=== PATIENT | female | born 1975 | race Caucasian/White ===

== ENCOUNTER 2016-10-07 14:32 | Emergency (ER) | payer SELFPAY ==
[2016-10-07] MEDS ORDERED: ACETAMINOPHEN TAB 325 MG TAB PO STA (15:55)
[2016-10-07] MEDS ORDERED: SODIUM CHLORIDE 0.9% 1,000 ML IV ONE (15:55)
[2016-10-07 16:17] LABS: Basophils % (A) 0 %; CH 31.4; CHCM 34.5; Eosinophils # (A) 0.1 k/uL (0-0.7); Eosinophils % (A) 1 %; HCT 38.2 % (34.0-46.0); HDW 2.67; HGB 12.9 gm/dL (11.4-16.0); Luc # (Auto) 0.06; Luc % (Auto) 1; Lymphocytes # (A) 0.7 k/uL (1.0-4.8); Lymphocytes % (A) 7 %; MCH 30.9 pg (25.0-35.0); MCHC 33.8 g/dL (31.0-37.0); MCV 91.5 fL (80.0-100.0); Mean Platelet Volume 7.8; Monocytes # (A) 0.2 k/uL (0-1.0); Monocytes % (A) 2 %; Neutrophils # (A) 9.1 k/uL (1.3-7.7); Neutrophils % (A) 89 %; RBC 4.17 m/uL (3.80-5.40); RDW 12.2 % (11.5-15.5); WBC 10.3 k/uL (3.8-10.6)
[2016-10-07 16:28] LABS: Anion Gap 8 mmol/L; Blood Urea Nitrogen 16 mg/dL (7-17); Calcium 8.9 mg/dL (8.4-10.2); Carbon Dioxide 24 mmol/L (22-30); Chloride 105 mmol/L (98-107); Glucose 86 mg/dL (74-99); Non-African American GFR(MDRD) >60 (>60 ml/min/1.73 sqM); Potassium 4.1 mmol/L (3.5-5.1); Sodium 137 mmol/L (137-145)
--- NOTE | 2016-10-07 16:29 | XR ---
EXAMINATION TYPE: XR chest 2V DATE OF EXAM: 10/07/2016 4:24 PM COMPARISON: 03/26/2010 HISTORY: 40-year-old female with cough TECHNIQUE: PA and lateral views FINDINGS: The cardiomediastinal silhouette, aorta, and pulmonary vasculature are within normal limits. Lungs an d pleural spaces are clear. IMPRESSION: No acute cardiopulmonary process.
[2016-10-07 16:56] VITALS: RESP 14
--- NOTE | 2016-10-07 17:08 | ED ---
General Adult HPI - General Chief complaint: Shortness of Breath Stated complaint: SOB/Cogestion Time Seen by Provider: 10/07/16 15:19 Source: patient Mode of arrival: ambulatory Limitations: no limitations - History of Present Illness Initial comments: 40-year-old female presenting for evaluation of 2 weeks of cough and fever. She states during the first week she had a dry cough with fever that H did T-max of 10 1F. She also had some rhinorrhea and congestion but these symptoms resolved over the next 8-9 days with only Motrin and Tylenol interventions. She was asymptomatic for a few days but yesterday she states she started having worsening nonproductive cough and return of fevers and myalgias. She has not taken any medications for her symptoms including antibiotics. There are no alleviating or exacerbating factors. She has not seen her primary care physician concerning these symptoms as she states she does not have any insurance. She states that she has multiple sick contacts at the workplace. She is also a smoker. - Related Data Previous Rx's Medication Instructions Recorded Azithromycin [Zithromax Z-pack] 0 mg PO DIRECTED #6 tab 10/07/16 Allergies Allergy/AdvReac Type Severity Reaction Status Date / Time No Known Allergies Allergy Verified 10/07/16 15:35 Review of Systems ROS Statement: Those systems with pertinent positive or pertinent negative responses have been documented in the HPI. ROS Other: All systems not noted in ROS Statement are negative. Constitutional: Reports: fever, chills Eyes: Denies: eye pain, eye discharge, vision change ENT: Denies: ear pain, throat pain Respiratory: Reports: cough, dyspnea. Denies: wheezes, hemoptysis Cardiovascular: Denies: chest pain, palpitations, edema Endocrine: Reports: fatigue. Denies: polydipsia, polyuria Gastrointestinal: Denies: abdominal pain, nausea, vomiting Genitourinary: Denies: urgency, dysuria Musculoskeletal: Reports: myalgia. Denies: back pain Skin: Denies: rash, lesions Neurological: Denies: headache, weakness Past Medical History Past Medical History: No Reported History History of Any Multi-Drug Resistant Organisms: None Reported Additional Past Surgical History / Comment(s): tubal ligation. Past Psychological History: No Psychological Hx Reported Smoking Status: Current every day smoker Past Alcohol Use History: None Reported Past Drug Use History: None Reported General Exam Limitations: no limitations General appearance: alert, in no apparent distress Head exam: Present: atraumatic, normocephalic Eye exam: Present: normal appearance, EOMI. Absent: scleral icterus ENT exam: Present: normal exam, normal oropharynx, mucous membranes moist. Absent: mucous membranes dry Neck exam: Present: normal inspection. Absent: tenderness, meningismus Respiratory exam: Present: normal lung sounds bilaterally. Absent: respiratory distress, wheezes, rales, rhonchi Cardiovascular Exam: Present: normal rhythm, tachycardia. Absent: regular rate GI/Abdominal exam: Present: soft. Absent: distended, tenderness, guarding, rebound, rigid Rectal exam: Present: deferred Extremities exam: Present: normal inspection, full ROM Back exam: Present: normal inspection, full ROM. Absent: tenderness Neurological exam: Present: alert, oriented X3, normal gait Psychiatric exam: Present: normal affect, normal mood Skin exam: Present: warm, dry, intact Course Vital Signs 10/07/16 10/07/16 10/07/16 15:02 16:04 16:50 Temperature 102.2 F H 99.0 F Pulse Rate 113 H 99 94 Respiratory 20 15 14 Rate Blood Pressure 132/59 113/61 97/59 O2 Sat by Pulse 100 98 98 Oximetry 10/07/16 17:26 Temperature 98.9 F Pulse Rate 99 Respiratory 14 Rate Blood Pressure 94/51 O2 Sat by Pulse 96 Oximetry Medical Decision Making - Medical Decision Making 40-year-old female presented for evaluation of URI symptoms that started 2 weeks ago resolved after 8-9 days and then returned in the last 24-48 hours. Cough is nonproductive and on presentation she is febrile. Physical examination reveals a nondistressed female resting comfortably on the bed with clear lung sounds bilaterally. The rest of the physical exam is benign. We'll obtain an influenza swabs, labs, chest x-ray, and provide antipyretics. There are no indications for breathing treatments as her lungs are clear. Labs revealed no significant abnormalities and influenza was negative. Chest x- ray reveals no acute process. The patient was informed of these results and on reevaluation was feeling much better. She was advised to follow-up with her primary care physician but to return to this facility if her symptoms should worsen or persist. She acknowledged an understanding of this information and agreed with this plan of care. - Lab Data Result diagrams: 10/07/16 16:00 10/07/16 16:00 Lab Results 10/07/16 10/07/16 10/07/16 Range/Units 16:00 16:00 16:00 WBC 10.3 (3.8-10.6) k/uL RBC 4.17 (3.80-5.40) m/uL Hgb 12.9 (11.4-16.0) gm/dL Hct 38.2 (34.0-46.0) % MCV 91.5 (80.0-100.0) fL MCH 30.9 (25.0-35.0) pg MCHC 33.8 (31.0-37.0) g/dL RDW 12.2 (11.5-15.5) % Plt Count 342 (150-450) k/uL Neutrophils % 89 % Lymphocytes % 7 % Monocytes % 2 % Eosinophils % 1 % Basophils % 0 % Neutrophils # 9.1 H (1.3-7.7) k/uL Lymphocytes # 0.7 L (1.0-4.8) k/uL Monocytes # 0.2 (0-1.0) k/uL Eosinophils # 0.1 (0-0.7) k/uL Basophils # 0.0 (0-0.2) k/uL Sodium 137 (137-145) mmol/L Potassium 4.1 (3.5-5.1) mmol/L Chloride 105 (98-107) mmol/L Carbon Dioxide 24 (22-30) mmol/L Anion Gap 8 mmol/L BUN 16 (7-17) mg/dL Creatinine 0.60 (0.52-1.04) mg/dL Est GFR (MDRD) Af Amer >60 (>60 ml/min/1.73 sqM) Est GFR (MDRD) Non-Af >60 (>60 ml/min/1.73 sqM) Glucose 86 (74-99) mg/dL Calcium 8.9 (8.4-10.2) mg/dL Influenza Type A RNA Not Detected (Not Detectd) Influenza Type B (PCR) Not Detected (Not Detectd) Disposition Clinical Impression: URI (upper respiratory infection), Fever Disposition: HOME SELF-CARE Condition: Stable Instructions: Upper Respiratory Infection (ED) Additional Instructions: Please use medication as discussed. Please follow up with family doctor if symptoms have not improved over the next two days. Please return to the emergency room if your symptoms increase or worsen or for any other concerns. Prescriptions: Azithromycin [Zithromax Z-pack] 0 mg PO DIRECTED #6 tab Referrals: Dayanna Hackett MD [STAFF PHYSICIAN] - 1-2 days Time of Disposition: 17:08
[2016-10-07 17:28] VITALS: BP 94/51; PULSE 99; TEMP 98.9
== END 2016-10-07 17:28 | disposition home or self-care (01) ==
LOC: EC 14:32
DX: J06.9 Acute upper respiratory infection, unspecified (principal); R50.9 Fever, unspecified; M79.1 Myalgia; F17.200 Nicotine dependence, unspecified, uncomplicated
CPT/HCPCS: 36415; 71020; 80048; 85025; 87502; 96360; 99285

== ENCOUNTER 2017-05-02 13:01 | Emergency (ER) | payer OTHER ==
--- NOTE | 2017-05-02 15:02 | US ---
EXAMINATION TYPE: US transvaginal DATE OF EXAM: 05/02/2017 COMPARISON: NONE CLINICAL HISTORY: Pain. Patient states feeling a bulge, possible prolapse, irregular menses TECHNIQUE: Transvaginal (TV) Date of LMP: 04/14/2017, EXAM MEASUREMENTS: Uterus: 7.0 x 6.0 x 4.6 cm Endometrial Stripe: 0.4 cm Right Ovary: 4.5 x 2.6 x 2.2 cm Left Ovary: 3.6 x 1.5 x 2.3 cm 1. Uterus: Retroverted wnl 2. Endometrium: wnl 3. Right Ovary: Cystic lesion - 2.2 x 1.9 x 1.9 cm 4. Left Ovary: wnl Spectral, color and waveform doppler imaging shows good arterial and venous flow within the ovaries 5. Bilateral Adnexa: Free fluid seen adjacent to bilateral ovaries 6. Posterior cul-de-sac: Free fluid Cervix- wnl Uterus is retroverted in shape. Free fluid is seen in the pelvis extending into the bilateral adnexa. There is 2.2 cm prominent follicle or simple small ovarian cysts in the periphery of right ovary. IMPRESSION: Small amount of free fluid in pelvis extending into bilateral adnexa, nonspecific finding .
--- NOTE | 2017-05-02 15:24 | ED ---
General Adult HPI - General Chief complaint: Abdominal Pain Stated complaint: Female Time Seen by Provider: 05/02/17 13:37 Source: patient, RN notes reviewed Mode of arrival: ambulatory Limitations: no limitations - History of Present Illness Initial comments: 41 -year-old female presents to the emergency department with a chief complaint of something protruding from her vaginal area. Patient states she's noticed some pressure to the vaginal area and she noticed today when she went to the bathroom that something came out. Patient states that she has had 3 children vaginal delivery. Patient has any falls traumas or injuries. Patient states she has some mild cramping on occasion to uterus but denies any other symptoms. Patient denies any burning or stinging with urination. Patient was concerned due to the discomfort so she thought that she should be seen.Patient denies any recent fever, chills, shortness of breath, chest pain, back pain, abdominal pain , nausea vomiting, numbness or tingling, dysuria or hematuria, constipation or diarrhea, headaches or visual changes, or any other current symptoms. - Related Data Home Medications Medication Instructions Recorded Confirmed Ibuprofen [Motrin] 200 - 400 mg PO Q6HR PRN 05/02/17 05/02/17 Allergies Allergy/AdvReac Type Severity Reaction Status Date / Time No Known Allergies Allergy Verified 05/02/17 13:33 Review of Systems ROS Statement: Those systems with pertinent positive or pertinent negative responses have been documented in the HPI. ROS Other: All systems not noted in ROS Statement are negative. Past Medical History Past Medical History: No Reported History History of Any Multi-Drug Resistant Organisms: None Reported Additional Past Surgical History / Comment(s): tubal ligation. Past Psychological History: No Psychological Hx Reported Smoking Status: Current every day smoker Past Alcohol Use History: None Reported Past Drug Use History: None Reported General Exam Limitations: no limitations General appearance: alert, in no apparent distress ENT exam: Present: normal exam, mucous membranes moist Neck exam: Present: normal inspection. Absent: tenderness, meningismus, lymphadenopathy Respiratory exam: Present: normal lung sounds bilaterally. Absent: respiratory distress, wheezes, rales, rhonchi, stridor Cardiovascular Exam: Present: regular rate, normal rhythm, normal heart sounds. Absent: systolic murmur, diastolic murmur, rubs, gallop, clicks GI/Abdominal exam: Present: soft, normal bowel sounds. Absent: distended, tenderness, guarding, rebound, rigid External exam: Present: normal external exam Speculum exam: Present: normal speculum exam By manual exam: Present: normal by manual exam Extremities exam: Present: normal inspection, full ROM, normal capillary refill. Absent: tenderness, pedal edema, joint swelling, calf tenderness Neurological exam: Present: alert, oriented X3 Psychiatric exam: Present: normal affect, normal mood Skin exam: Present: warm, dry, intact, normal color. Absent: rash Course Vital Signs 05/02/17 13:25 Temperature 98.8 F Pulse Rate 91 Respiratory 20 Rate Blood Pressure 123/76 O2 Sat by Pulse 100 Oximetry Medical Decision Making - Medical Decision Making 41-year-old female presents with appears to be uterine prolapse. This time we discussed follow-up with OB as well as her family doctor. We discussed return parameters. We did discuss outpatient care note patient's questions. She stated that she understood and she is given the plan. All questions have been answered. She will be discharged home. - Radiology Data Radiology results: report reviewed, image reviewed Disposition Clinical Impression: Uterine prolapse Disposition: HOME SELF-CARE Condition: Stable Instructions: Uterine Prolapse (ED) Additional Instructions: Please use medication as discussed. Please follow up with family doctor if symptoms have not improved over the next two days. Please return to the emergency room if your symptoms increase or worsen or for any other concerns. Referrals: Neela Parsons MD [Primary Care Provider] - 1-2 days Tess Severino MD [STAFF PHYSICIAN] - 1-2 days Time of Disposition: 15:24
[2017-05-02 15:39] VITALS: BP 101/68; PULSE 71; RESP 18; TEMP 98.3
== END 2017-05-02 15:38 | disposition home or self-care (01) ==
LOC: EC 13:01
DX: N81.4 Uterovaginal prolapse, unspecified (principal); F17.200 Nicotine dependence, unspecified, uncomplicated; Z98.51 Tubal ligation status
CPT/HCPCS: 76830; 93975; 99284

== ENCOUNTER 2019-03-07 16:13 | Emergency (ER) | payer OTHER ==
[2019-03-07 16:20] VITALS: BP 118/75; PULSE 97; RESP 18; TEMP 98
--- NOTE | 2019-03-07 16:53 | ED ---
General Adult HPI - General Chief complaint: Extremity Injury, Lower Stated complaint: rt knee swelling Time Seen by Provider: 03/07/19 16:33 Source: patient Limitations: no limitations - History of Present Illness Initial comments: Patient is a 43-year-old female presenting to emergency Department with right knee swelling. Patient reports she has intermittent swelling the right knee for the past few years. Patient reports she had it drained before and states that she has "fluid in her knee". Patient reports mild discomfort in the right knee but denies any pain. Patient reports the discomfort is exacerbated with full knee flexion but alleviated extension. Patient denies any erythema or skin discoloration of the right knee. Patient denies any trauma to the right knee. Patient reports using ice and cold compresses with minimal improvement. - Related Data Home Medications Medication Instructions Recorded Confirmed Ibuprofen [Motrin] 200 - 400 mg PO Q6HR PRN 05/02/17 05/02/17 Allergies Allergy/AdvReac Type Severity Reaction Status Date / Time No Known Allergies Allergy Verified 05/02/17 13:33 Review of Systems ROS Statement: Those systems with pertinent positive or pertinent negative responses have been documented in the HPI. ROS Other: All systems not noted in ROS Statement are negative. Past Medical History Past Medical History: No Reported History History of Any Multi-Drug Resistant Organisms: None Reported Additional Past Surgical History / Comment(s): tubal ligation. Past Psychological History: No Psychological Hx Reported Smoking Status: Current every day smoker Past Alcohol Use History: None Reported Past Drug Use History: None Reported General Exam - General Exam Comments Initial Comments: General: Well-developed well-nourished distress HEENT: Normocephalic/atraumatic, PERLL, pharynx erythema, swallowing well, EAC no erythema, no exudates, TM clear, no cervical lymph nodes Neck: Supple, nontender, trachea midline Chest/Lungs: Normal respirations, no signs of respiratory distress clear to auscultation bilaterally no wheezes, rales, rhonchi Cardiac: Regular rate and rhythm, normal S1-S2, no murmurs rubs or gallops Abdomen/GI: Soft nontender, bowel sounds equal or quadrant x4, no guarding, no rebound no CVA tenderness Musculoskeletal: Mild swelling on the lateral aspect of the right knee, no erythema or skin discoloration, full range of motion, no popliteal masses noted, no calf tenderness, +2 dorsalis pedis and posterior tibialis bilaterally. Skin: Warmth, no rashes or lesions, no cyanosis or diaphoresis Neurologic: AAO x 3, CN 2-12 intact, Psychiatric: Mood and affect normal, judgment normal Limitations: no limitations Course Vital Signs 03/07/19 16:17 Temperature 98 F Pulse Rate 97 Respiratory 18 Rate Blood Pressure 118/75 O2 Sat by Pulse 99 Oximetry Medical Decision Making - Medical Decision Making Patient is a 43-year-old female presenting to emergency Department with right knee swelling. Due to the chronicity of her issue with the right knee and the fact that she has recent no traumatic injury to the region. Also the patient has no pain and has full range of motion. Due to these factors No x-ray is warranted at this time. I advised patient to follow-up with orthopedics. Patient advised to apply a knee compression brace. Strict return parameters were thoroughly discussed with patient who is understanding and agreeable. Case discussed with physician. Disposition Clinical Impression: Swelling of knee joint, right Disposition: HOME SELF-CARE Condition: Stable Instructions (If sedation given, give patient instructions): Knee Pain (ED) Additional Instructions: Please follow-up with surgical specialist. Please return to emergency department if symptoms worsen. Is patient prescribed a controlled substance at d/c from ED?: No Referrals: Mayra Vega MD [Primary Care Provider] - 1-2 days Herber Yang DO [Doctor of Osteopathic Medicine] - 1-2 days Time of Disposition: 16:53
== END 2019-03-07 17:07 | disposition home or self-care (01) ==
LOC: EC 16:13
DX: M25.461 Effusion, right knee (principal); F17.200 Nicotine dependence, unspecified, uncomplicated
CPT/HCPCS: 99282

== ENCOUNTER 2020-02-20 12:34 | Emergency (ER) | payer OTHER ==
--- NOTE | 2020-02-20 13:41 | XR ---
EXAMINATION TYPE: XR KUB DATE OF EXAM: 02/20/2020 COMPARISON: NONE HISTORY: Pain TECHNIQUE: Single supine KUB image of the abdomen is obtained FINDINGS: Small bowel demonstrates no evidence for dilatation or air fluid levels. Gas and fecal material is seen in non-distended colon. Moderate fecal stasis. No convincing evidence for pneumoperitoneum. No unusual calcifications. The lung bases are clear. The osseous structures are intact. Degenerative changes and curvature lumbar spine. IMPRESSION: 1. Moderate fecal stasis.
[2020-02-20] MEDS ORDERED: MAGNESIUM HYDROXIDE 2,400 MG/10 ML CUP PO PRN (13:43)
[2020-02-20 14:19] LABS: Basophils # (A) 0.1 k/uL (0-0.2); Basophils % (A) 2 %; Eosinophils # (A) 0.1 k/uL (0-0.7); Eosinophils % (A) 2 %; HCT 38.6 % (34.0-46.0); HGB 12.7 gm/dL (11.4-16.0); Lymphocytes % (A) 39 %; MCH 31.2 pg (25.0-35.0); MCHC 32.8 g/dL (31.0-37.0); MCV 95.1 fL (80.0-100.0); Mean Platelet Volume 7.9; Monocytes # (A) 0.3 k/uL (0-1.0); Monocytes % (A) 6 %; Neutrophils # (A) 2.6 k/uL (1.3-7.7); Neutrophils % (A) 50 %; Platelet Count 234 k/uL (150-450); RBC 4.06 m/uL (3.80-5.40); WBC 5.2 k/uL (3.8-10.6)
[2020-02-20 14:30] LABS: ALT 12 U/L (4-34); AST 20 U/L (14-36); African American GFR (CKD) >90 (>60 ml/min/1.73 sqM); Albumin 4.2 g/dL (3.5-5.0); Alkaline Phosphatase 49 U/L (38-126); Anion Gap 7 mmol/L; Blood Urea Nitrogen 15 mg/dL (7-17); Calcium 9.5 mg/dL (8.4-10.2); Carbon Dioxide 24 mmol/L (22-30); Chloride 103 mmol/L (98-107); Glucose 83 mg/dL (74-99); Non-African American GFR(CKD) >90 (>60 ml/min/1.73 sqM); Potassium 4.4 mmol/L (3.5-5.1); Sodium 134 mmol/L (137-145); Total Bilirubin 0.6 mg/dL (0.2-1.3); Total Protein 6.5 g/dL (6.3-8.2)
--- NOTE | 2020-02-20 14:46 | ED ---
Abdominal Pain HPI - General Chief Complaint: Abdominal Pain Stated Complaint: abd pain Time Seen by Provider: 02/20/20 12:50 Source: patient Mode of arrival: wheelchair Limitations: no limitations - History of Present Illness Initial Comments: 44-year-old female presenting today for chief complaint of abdominal cramping. Patient states she had bowel cramping that has since subsided that began this morning. Patient states that she has a history of constipation struggles frequently. Patient believes this is the cause of the physical similar to prev ious episodes. Patient states she has not had a bowel movement in 3 days. Patient denies any bloody stools denies any vomiting or nausea. Patient denies any current abdominal pain. Patient states she had the pain while at work and left and came here for evaluation. Patient denies any fevers, or localized pain. Remaining review of system negative - Related Data Previous Rx's Medication Instructions Recorded Magnesium Citrate 296 ml PO DAILY PRN 2 Days #2 02/20/20 bottle Allergies Allergy/AdvReac Type Severity Reaction Status Date / Time No Known Allergies Allergy Verified 02/20/20 13:46 Review of Systems ROS Statement: Those systems with pertinent positive or pertinent negative responses have been documented in the HPI. ROS Other: All systems not noted in ROS Statement are negative. Past Medical History Past Medical History: No Reported History History of Any Multi-Drug Resistant Organisms: None Reported Additional Past Surgical History / Comment(s): tubal ligation. Past Psychological History: No Psychological Hx Reported Smoking Status: Current every day smoker Past Alcohol Use History: None Reported Past Drug Use History: None Reported General Exam - General Exam Comments Initial Comments: General: The patient is awake and alert, in no distress Eye: Pupils are equal, round and reactive to light, extra-ocular movements are intact. No nystagmus. There is normal conjunctiva bilaterally. No signs of icterus. Ears, nose, mouth and throat: There are moist mucous membranes and no oral lesions. Neck: The neck is supple, there is no tenderness or JVD. Cardiovascular: There is a regular rate and rhythm. No murmur, rub or gallop is appreciated. Respiratory: Lungs are clear to auscultation, respirations are non-labored, b reath sounds are equal. No wheezes, stridor, rales, or rhonchi. Gastrointestinal: Soft, non-distended, non-tender abdomen without masses or organomegaly noted. There is no rebound or guarding present. Musculoskeletal: Normal ROM, no tenderness. Strength 5/5. Sensation intact. Radial pulses equal bilaterally 2+. Neurological: A&O x 3. CN II-XII intact grossly, There are no obvious motor or sensory deficits. Coordination appears grossly intact. Speech is normal. Skin: Skin is warm and dry and no rashes or lesions are noted. Psychiatric: Cooperative, appropriate mood & affect, normal judgment. Limitations: no limitations Course Vital Signs 02/20/20 02/20/20 12:36 15:03 Temperature 98.5 F 98 F Pulse Rate 93 89 Respiratory 18 16 Rate Blood Pressure 115/76 136/80 O2 Sat by Pulse 100 98 Oximetry Medical Decision Making - Medical Decision Making Moderate fecal stasis on KUB. No obstruction noted. Patient's abdomen nontender. No significant distention noted. Patient states pain earlier was allover crampy. Patient's history of constipation. Patient be treated with oral regimen. Recommend increased fluids and fiber as patient drinks a lot of soda. Patient case discussed [facility] Dr. Merida who is agreeable to discharge [facility] bowel regime and return parameters. I discussed the importance of return for increasing pain, vomiting persisting constipation. - Lab Data Result diagrams: 02/20/20 14:03 02/20/20 14:03 Lab Results 02/20/20 02/20/20 Range/Units 14:03 14:03 WBC 5.2 (3.8-10.6) k/uL RBC 4.06 (3.80-5.40) m/uL Hgb 12.7 (11.4-16.0) gm/dL Hct 38.6 (34.0-46.0) % MCV 95.1 (80.0-100.0) fL MCH 31.2 (25.0-35.0) pg MCHC 32.8 (31.0-37.0) g/dL RDW 12.0 (11.5-15.5) % Plt Count 234 (150-450) k/uL Neutrophils % 50 % Lymphocytes % 39 % Monocytes % 6 % Eosinophils % 2 % Basophils % 2 % Neutrophils # 2.6 (1.3-7.7) k/uL Lymphocytes # 2.0 (1.0-4.8) k/uL Monocytes # 0.3 (0-1.0) k/uL Eosinophils # 0.1 (0-0.7) k/uL Basophils # 0.1 (0-0.2) k/uL Sodium 134 L (137-145) mmol/L Potassium 4.4 (3.5-5.1) mmol/L Chloride 103 (98-107) mmol/L Carbon Dioxide 24 (22-30) mmol/L Anion Gap 7 mmol/L BUN 15 (7-17) mg/dL Creatinine 0.77 (0.52-1.04) mg/dL Est GFR (CKD-EPI)AfAm >90 (>60 ml/min/1.73 sqM) Est GFR (CKD-EPI)NonAf >90 (>60 ml/min/1.73 sqM) Glucose 83 (74-99) mg/dL Calcium 9.5 (8.4-10.2) mg/dL Total Bilirubin 0.6 (0.2-1.3) mg/dL AST 20 (14-36) U/L ALT 12 (4-34) U/L Alkaline Phosphatase 49 (38-126) U/L Total Protein 6.5 (6.3-8.2) g/dL Albumin 4.2 (3.5-5.0) g/dL Lipase 41 (23-300) U/L Disposition Clinical Impression: Constipation, Abdominal discomfort Disposition: HOME SELF-CARE Condition: Good Instructions (If sedation given, give patient instructions): Constipation (ED), High Fiber Diet (ED) Additional Instructions: Please use medication as discussed. Please follow-up with family doctor in the next 2 days. Please return to emergency room if the symptoms increase or worsen or for any other concerns. Prescriptions: Magnesium Citrate 296 ml PO DAILY PRN 2 Days #2 bottle PRN Reason: Constipation Is patient prescribed a controlled substance at d/c from ED?: No Referrals: None,Stated [Primary Care Provider] - 1-2 days Time of Disposition: 14:45
[2020-02-20 15:04] VITALS: BP 136/80; PULSE 89; RESP 16; TEMP 98
== END 2020-02-20 15:03 | disposition home or self-care (01) ==
LOC: EC 12:34
DX: K59.00 Constipation, unspecified (principal); F17.200 Nicotine dependence, unspecified, uncomplicated; Z98.51 Tubal ligation status
CPT/HCPCS: 36415; 74018; 80053; 83690; 85025; 99284